=== PATIENT | male | born 1940 | race Two or more races ===

== ENCOUNTER 2023-07-30 05:10 | Day surgery (SDC) | payer OTHER ==
[~2023-07-30] VITALS: Ht 167.6 cm; Wt 66.2 kg
[~2023-07-30 05:10] MED LIST: ACCUPRIL10 MG PO; CHILDREN'S ASPI81 MG PO; COZAAR25 MG PO; NORVASC5 MG PO; PROSCAR5 MG PO; SYNTHROID100 MCG PO; TAMS0.4C PO; ZEGERID 40 MG1 EACH PO
[2023-07-30] MEDS ORDERED: HEMOSTATIC MATRIX 1 KIT KIT TOP ONE ×2 (06:57→07:45)
[2023-07-30] MEDS ORDERED: BUPIVACAINE HCL/PF 0.5% 30ML ML ONE (06:57)
[2023-07-30] MEDS ORDERED: POVIDONE-IODINE 118 ML BOTT TOP ONE ×4 (06:57→08:15)
[2023-07-30] MEDS ORDERED: LIDOCAINE HCL 1% 200MG/20ML VIAL IJ ONE (06:57)
[2023-07-30] MEDS ORDERED: DIBUCAINE 30 GM TUBE ONE (06:57)
[2023-07-30] MEDS ORDERED: METRONIDAZOLE/SODIUM CHLORIDE 500 MG/100 ML PIGGYBACK IV ONE ×2 (07:06→07:45)
[2023-07-30] MEDS ORDERED: CEFTRIAXONE SODIUM 2,000 MG VIAL ONE (07:06)
[2023-07-30] MEDS ORDERED: CEFTRIAXONE SODIUM 2,000 MG VIAL IV ONE (07:45)
[2023-07-30] MEDS ORDERED: BUPIVACAINE HCL 30 ML VIAL IJ ONE (07:45)
[2023-07-30] MEDS ORDERED: DIBUCAINE 30 GM TUBE RECTAL ONE (07:45)
[2023-07-30] MEDS ORDERED: LIDOCAINE HCL/EPINEPHRINE 10MG/ML 1% 50ML IJ ONE (07:45)
[2023-07-30] MEDS ORDERED: CHLORHEXIDINE GLUCONATE 120 ML BOTTLE TOP ONE (08:16)
[2023-07-30] MEDS ORDERED: INTESTINEX680 M1 PO (10:57)
[2023-07-30] MEDS ORDERED: NEURONTIN300 MG PO (10:57)
[2023-07-30] MEDS ORDERED: CELECOXIB200 MG PO (10:57)
[2023-07-30] MEDS ORDERED: GABAPENTIN100 MG PO (10:58)
== END 2023-07-30 15:25 | disposition home or self-care (01) ==
LOC: CIR.AMB 05:10
PROVIDERS: ATTEND Surgery
DX: K64.1 Second degree hemorrhoids (principal); K64.4 Residual hemorrhoidal skin tags; K64.8 Other hemorrhoids; K62.5 Hemorrhage of anus and rectum